=== PATIENT | male | born 1965 | race African-American/Black ===

== ENCOUNTER → 2016-12-03 | Outpatient (CLI) | payer SELFPAY ==
--- NOTE | ~2016-12-03 | CT107 ---
[facility]. [facility] A Service of [facility] RADIOLOGY TEXT RESULTS PATIENT: DAIN TRAMMELL LOCATION: [facility] : 61 UNIT #: [id number] AGE: [address]: GAMAL COREA MD SEX: M ORDER DR: [id number] [place] [id number] O MR#: [id number] Acc #: [id number] NAME: DAIN TRAMMELL : 1965 SEX: M STUDY DATE/TIME: 12/03/2016 12:44 UNIT: [facility] ROOM: STUDY DESCRIPTION: CT Pelvis Wo Cont Attending Physician: Kelly Corea M.D. Referring Physician: Kelly Corea M.D. Ordering Physician: Kelly Corea M.D. Primary Care Physician: Kelly Corea M.D. MEDICAL IMAGING REPORT This report is preliminary unless electronic signature is present. EXAM CT pelvis without contrast INDICATIONS Left lower abdominal pain and left-sided groin pain for 1 year. Concern for inguinal hernia. TECHNIQUE CT of the pelvis was performed without contrast. Coronal and sagittal reformatted images were obtained. This CT exam was performed with one or more of the following radiation dose reduction techniques: automatic exposure control, adjustment of mA and/or kV according to patient size, and iterative reconstruction. There are no comparison studies available. FINDINGS There is no evidence for an inguinal hernia. Visualized portions of the colon are unremarkable. Visualized small bowel loops are unremarkable. No free fluid. Urinary bladder is decompressed. No evidence for any inflammatory stranding or abscess. Bone windows demonstrate degenerative changes involving the SI joints. IMPRESSION No evidence for inguinal hernia. Dictated by... Chris Powers M.D. THIS IS AN ELECTRONICALLY VERIFIED REPORT Chris Powers M.D. at 12/04/2016 7:33 AM ARS/nida [facility] A Service of [facility] RADIOLOGY TEXT RESULTS PATIENT: DAIN TRAMMELL LOCATION: [facility] : 61 UNIT #: [id number] AGE: [address]: GAMAL COREA MD SEX: M ORDER DR: TD: 12/03/2016 20:17 JOB #: [id number] MEDICAL IMAGING REPORT Page 1 of 1
== END | disposition home or self-care (01) ==
LOC: SCT 12:28
DX: R10.32 Left lower quadrant pain (principal)
CPT/HCPCS: 72192